=== PATIENT | female | born 1960 | race Caucasian/White ===

== ENCOUNTER 2018-12-14 16:40 | Emergency (ER) | payer OTHER ==
[~2018-12-14] VITALS: Ht 162.6 cm; Wt 67.1 kg
[2018-12-14] MEDS ORDERED: FUL-GLO OP ONE (16:45)
[2018-12-14 16:55] VITALS: BP 154/93
--- NOTE | 2018-12-14 16:55 | NUR ---
ARRIVAL PATIENT ARRIVED TO [facility] AMBULATORY, C/O OF RIGHT EYE PAIN SINCE GETTING UP THIS MORNING. CAME TO THE ED FOR EVAL.
[2018-12-14] MEDS ORDERED: BOOSTRIX TDAP IM ONE ×2 (17:00→17:30)
--- NOTE | 2018-12-14 17:05 | ER.PDOC ---
General Chief Complaint: Eye Problems Stated Complaint: FORIEGN OBJECT IN RIGHT EYE Time seen by MD: 17:00 Source: patient Exam Limitations: no limitations History of Present Illness Timing/Duration: this morning Associated Symptoms: pian, sensitivity to light, redness, eyelid swelling, foreign body sensation Location: right eye Severity: moderate Apparent Inury: No Allergies: Coded Allergies: Penicillins (Verified Allergy, Severe, VOMITING, 03/22/13) Sulfa (Sulfonamide Antibiotics) (Unverified Allergy, Unknown, 12/12/13) aspirin (Unverified Allergy, Unknown, 12/12/13) Home Meds No Active Prescriptions or Reported Meds Past Medical History Medical History: asthma Surgical History: no surgical history LMP (females 10-50): postmenopause Family History Significant Family History: no pertinent family hx Social History Smoking: non-smoker, cigarettes Alcohol Use: none Drug Use: none Reviewed Nursing Reviewed: Vital Signs, Abn. Noted All Other Systems: Reviewed and Negative Physical Exam General Appearance: alert, no distress Visual Acuity: no globe trauma Eyelid: (R) edema, (R) erythema, ecchymosis, everted for exam (R) Conjunctiva/Sclera: (R) injected Corneas: exam w/flurescein (R), cornea ulcer (R) EOM's: intact, no nystagmus Pupils: PERRL, nml accommodation Head/ENT: nml inspection, pharynx nml Skin Exam: Normal Color, Warm/Dry Neck/Back: nml inspection, painless ROM Resp/CVS: no resp distress, lungs clear, heart sounds nml, reg. rate & rhythm Abdomen: non-tender, no organomegaly NEURO/PSYCH: oriented X3, mood/effect nml Results/Orders Results/Orders Vital Signs Date Time Temp Pulse Resp B/P (MAP) Pulse Ox O2 Delivery O2 Flow Rate FiO2 12/14/18 16:55 97.8 85 18 154/93 (113) 94 Room Air 97.8 12/14/18 16:52 97.8 85 18 97.8 12/14/18 16:52 97.8 85 18 94 Room Air 97.8 Course Vitals & review Data Vital Sign - Last 24 Hours 12/14/18 12/14/18 12/14/18 16:52 16:52 16:55 Temp 97.8 97.8 97.8 97.8 97.8 97.8 Pulse 85 85 85 Resp 18 18 18 B/P (MAP) 154/93 (113) Pulse Ox 94 94 O2 Delivery Room Air Room Air Sepsis Infection Criteria Pres: None O2 Sat by Pulse Oximetry: 94 Departure Time of Disposition: 17:00 Disposition: 01 HOME, SELF-CARE Impression: Primary Impression: Corneal ulcer Condition: Improved Referrals: PCP,UNKNOWN (PCP) PRIMARY CARE PROVIDER Scripts No Active Prescriptions or Reported Meds Duration or Time Spent with Pa: 15 M JACKIE BLOOM MD Dec 14, 2018 17:05
[2018-12-14 17:25] VITALS: BP 154/93
== END 2018-12-14 17:26 | disposition home or self-care (01) ==
LOC: ER 16:40
DX: H16.001 Unspecified corneal ulcer, right eye (principal); F17.210 Nicotine dependence, cigarettes, uncomplicated; J45.909 Unspecified asthma, uncomplicated; Z88.0 Allergy status to penicillin; Z88.2 Allergy status to sulfonamides; Z88.6 Allergy status to analgesic agent
CPT/HCPCS: 90471; 90715; 99283